=== PATIENT | female | born 1965 | race Caucasian/White ===

== ENCOUNTER → 2017-03-21 | Outpatient (CLI) | payer OTHER ==
[~2017-03-21] MED LIST: MAGN250T8 PO
[2017-03-21 08:55] LABS: BLOOD UREA NITROGEN 12 mg/dL (7-18)
== END | disposition home or self-care (01) ==
LOC: STAR 07:33
PROVIDERS: ATTEND Obstetrics & Gynecology Gynecology
DX: Z01.818 Encounter for other preprocedural examination (principal); D25.9 Leiomyoma of uterus, unspecified; N92.0 Excessive and frequent menstruation with regular cycle
CPT/HCPCS: 36415; 80048; 81003; 84703; 85025

== ENCOUNTER 2017-03-27 05:36 | Day surgery (SDC) | payer OTHER ==
[2017-03-21 08:14] VITALS: BP 120/77
[~2017-03-27] VITALS: Ht 165.1 cm; Wt 58.0 kg
[2017-03-27] MEDS ORDERED: LIDOCAINE 1%, 2ML ONE (06:06)
[2017-03-27] MEDS ORDERED: LACTATED RINGERS 1,000 ML IV SCH (06:31)
[2017-03-27] MEDS ORDERED: MAGN400T36 PO (06:31)
[2017-03-27] MEDS ORDERED: MAGN300C PO (06:35)
[2017-03-27 06:48] LABS: HCG UR OBC PASS
[2017-03-27] MEDS ORDERED: MIDAZOLAM 1 MG/ML, 2ML ONE (06:57)
[2017-03-27] MEDS ORDERED: FENTANYL PF 250 MCG/5ML ONE (06:57)
[2017-03-27] MEDS ORDERED: LIDOCAINE/PF 1.5%-EPI 1:200K, 30ML ONE (06:59)
[2017-03-27] MEDS ORDERED: FLUORESCEIN SODIUM 500 MG/5 ML ONE (06:59)
[2017-03-27] MEDS ORDERED: LIDOCAINE 1%, 2ML SQ PRN (07:00)
[2017-03-27] MEDS ORDERED: DEXAMETHASONE 4 MG/ML, 1ML ONE (07:23)
[2017-03-27] MEDS ORDERED: CEFAZOLIN 1,000 MG ONE (07:23)
[2017-03-27] MEDS ORDERED: PROPOFOL 10 MG/ML, 20ML ONE (07:23)
[2017-03-27] MEDS ORDERED: ONDANSETRON 2MG/ML, 2ML ONE (07:23)
[2017-03-27] MEDS ORDERED: KETOROLAC 30 MG/1 ML ONE (07:23)
[2017-03-27] MEDS ORDERED: OXYcodone 5 MG/5 ML ORAL.SOL UDC PO PRN (08:00)
[2017-03-27] MEDS ORDERED: ACETAMINOPHEN 325 MG TABLET PO PRN (08:00)
[2017-03-27] MEDS ORDERED: MEPERIDINE/PF 25MG/0.5ML IVPush PRN (08:00)
[2017-03-27] MEDS ORDERED: PROMETHAZINE 25 MG/ML, 1ML IV PRN (08:00)
[2017-03-27] MEDS ORDERED: MIDAZOLAM 1 MG/ML, 2ML IV PRN (08:00)
[2017-03-27] MEDS ORDERED: HYDROmorphone 1 MG/ML, 1ML IV PRN (08:00)
[2017-03-27] MEDS ORDERED: ONDANSETRON 2MG/ML, 2ML IVPush PRN ×2 (08:00→11:30)
[2017-03-27] MEDS ORDERED: FENTANYL PF 100 MCG/2ML ONE (09:26)
[2017-03-27] MEDS ORDERED: OXYcodone 5 MG/5 ML ORAL.SOL UDC ONE (09:26)
[2017-03-27] MEDS ORDERED: ACETAMINOPHEN 325 MG/10.15 ML UDC ONE (09:26)
[2017-03-27] MEDS ORDERED: ACETAMINOPHEN 650 MG/20.3 ML UDC ONE (09:26)
[2017-03-27] MEDS: FENTANYL PF 100 MCG/2ML IV PRN ×2 (09:49→09:58)
[2017-03-27] MEDS ORDERED: OXYcodone/APAP 7.5/325MG TABLET PO PRN (11:30)
[2017-03-27] MEDS ORDERED: KETOROLAC 30 MG/1 ML IVPush PRN (11:30)
[2017-03-27] MEDS ORDERED: DIPHENHYDRAMINE 50 MG/ML, 1ML IVPush PRN (11:30)
== END 2017-03-27 15:30 ==
LOC: OUT 05:36
PROVIDERS: ATTEND Obstetrics & Gynecology Gynecology
DX: N92.0 Excessive and frequent menstruation with regular cycle (principal); D25.9 Leiomyoma of uterus, unspecified
CPT/HCPCS: 36415; 52000; 58262; 81025; 85014; 88307; J0690; J1100; J1885; J2250; J2405; J2704; J3010; J3490; J7120